=== PATIENT | female | born 1960 | race Caucasian/White ===

== ENCOUNTER 2020-04-30 08:35 | Day surgery (SDC) | payer OTHER ==
[~2020-04-30] VITALS: Ht 170.2 cm; Wt 91.1 kg
[~2020-04-30 08:35] MED LIST: ACET325; ACET325 PO; ALBIPROI INH; ALBU90OI INH; ALBU90OI61 INH; ANTIBIOTIC; CALCA500CH PO; CARI350 PO; CEPH500 PO; CHOL10002 PO; CIPR500 PO; CIPR750 PO; CITA20 PO; CRUTCH2 USE; CRUTCH4 USE; CYCL10; CYCL10 PO; Calcium + Vita1 EACH PO; Cipro500 MG PO; Cleocin HCl300 MG PO; Colace100 MG PO; DOCU100 PO; DOXY100 PO; ERGO400 PO; HYDACE10B PO; HYDACE5 PO; HYDACE5325; HYDMOR2 PO; HYDR-86 PO; HYDR1TAB94 PO; IBUP600; IBUP600 PO; IBUP800 PO; Imitrex100 MG PO; LOPE2C; LORA10 PO; NORT50; NUVA RING; Norco 10-325 T1 EACH PO; Norco 5-325 Ta1 EACH PO; OMEP20ER PO; ONDA4 PO; ONDA4ODT MM; OXYACE5T PO; OXYACE7.5T PO; OXYC5 PO; PRED10 PO; PROC10 PO; Percocet 5-3251 EACH PO; Prinivil10 MG PO; STOOL SOFTNER PO; SULFAMETHOXAZOLE5 ML PO; SUMA25 PO; TRAACE; TRAM50 PO; VICODIN 5-3001 EACH; Valium5 MG PO; Zofran Odt4 MG SL; Zofran Odt8 MG SL; Zofran4 MG PO; Zofran8 MG PO
--- NOTE | 2020-04-30 09:37 | NUR ---
04/30/20 0937 Lacey Weiner 1 TRY RIGHT HAND VALVE CML
== END 2020-04-30 10:56 | disposition home or self-care (01) ==
LOC: ORSCSDS 08:35
PROVIDERS: Surgery
PROC: 0DJD8ZZ Inspection of Lower Intestinal Tract, Via Natural or Artificial Opening Endoscopic (ICD-10-PCS; principal; 2020-04-30 09:45)
DX: Z12.11 Encounter for screening for malignant neoplasm of colon (principal); Z86.010 Personal history of colon polyps; B19.20 Unspecified viral hepatitis C without hepatic coma; J44.9 Chronic obstructive pulmonary disease, unspecified; E78.5 Hyperlipidemia, unspecified; E66.9 Obesity, unspecified; Z68.32 Body mass index [BMI] 32.0-32.9, adult; F17.210 Nicotine dependence, cigarettes, uncomplicated; F41.8 Other specified anxiety disorders; Z79.899 Other long term (current) drug therapy
CPT/HCPCS: J2250; J2405; J2704; J7120

== ENCOUNTER → 2023-05-06 | Outpatient (CLI) | payer OTHER ==
[2023-05-07 14:23] LABS: Stool Occult Bld Immuno 1 Positive (NEGATIVE)
== END | disposition home or self-care (01) ==
LOC: LAB 09:43 → LAB SHORT 09:43
PROVIDERS: Nurse Practitioner Family
DX: Z12.11 Encounter for screening for malignant neoplasm of colon (principal)
CPT/HCPCS: G0328

== ENCOUNTER 2023-12-30 22:00 | Emergency (ER) | payer OTHER ==
[~2023-12-30] VITALS: Ht 170.2 cm; Wt 88.5 kg
[~2023-12-30 22:00] MED LIST changes: +ANORO ELLIPTA1 EACH INH; +CALCIUM CARBON500 M1 PO; +Cyclobenzaprine5 MG PO; +Cymbalta20 MG PO; +FLONASE ALLERG9.9 M2; +FOLI1 PO; +IBUP400 PO; +LOSA25 PO; +NICO2; +VITAMIN B-1100 M1 PO; +[UNRECOGNIZED DRUG - OTHER] PO
[2023-12-30] MEDS ORDERED: Propofol 10mg/ml 20 ml Vial (Procedural) IV ONE (22:45)
[2023-12-30] MEDS ORDERED: NS 1,000 ML IV SCH (23:05)
[2023-12-30] MEDS ORDERED: FentaNYL Citrate 50 MCG/ML 2 ML Injection IV ONE (23:50)
[2023-12-30] MEDS ORDERED: Ondansetron HCl 2 MG / ML 2ML Vial IV ONE (23:50)
[2023-12-31] MEDS ORDERED: Acetaminophen 325 MG TABLET PO ONE (00:20)
[2023-12-31] MEDS ORDERED: Ketorolac Tromethamine 30mg Vial IV ONE (00:20)
[2023-12-31] MEDS ORDERED: HYDMOR2 PO (00:56)
[2023-12-31 01:43] VITALS: BP 130/94
== END 2023-12-31 01:45 | disposition home or self-care (01) ==
LOC: ER 22:00
DX: S52.501A Unspecified fracture of the lower end of right radius, initial encounter for closed fracture (principal); S52.601A Unspecified fracture of lower end of right ulna, initial encounter for closed fracture; W01.0XXA Fall on same level from slipping, tripping and stumbling without subsequent striking against object, initial encounter; F17.200 Nicotine dependence, unspecified, uncomplicated; Z88.2 Allergy status to sulfonamides; Z88.0 Allergy status to penicillin; Z88.1 Allergy status to other antibiotic agents; Z88.5 Allergy status to narcotic agent; Z88.8 Allergy status to other drugs, medicaments and biological substances; Z91.048 Other nonmedicinal substance allergy status; Z79.51 Long term (current) use of inhaled steroids; Z79.1 Long term (current) use of non-steroidal anti-inflammatories (NSAID); Z79.899 Other long term (current) drug therapy
CPT/HCPCS: 25605; 73110; 73200; 76000; 76377; 96374-59; 96375-59; 99152; 99285-25; A9270; J1885; J2405; J2704; J3010; J7030

== ENCOUNTER 2024-01-10 10:31 | Day surgery (SDC) | payer OTHER ==
[~2024-01-10] VITALS: Ht 170.2 cm; Wt 87.4 kg
[~2024-01-10 10:31] MED LIST changes: +Lactated Ringer's 1,000 ML IV ONE
[2024-01-10] MEDS ORDERED: CeFAZolin Sodium 2,000 MG VIAL ONE (10:47)
[2024-01-10] MEDS ORDERED: NS 50 ML IV ONE (10:47)
[2024-01-10] MEDS ORDERED: OXYC10TA19 PO (11:06)
[2024-01-10] MEDS ORDERED: Lactated Ringer's 1,000 ML IV ONE (11:13)
--- NOTE | 2024-01-10 11:18 | NUR ---
01/10/24 1118 Casie Nieves PT COMFORTABLE IN BED. OP ARM ON PILLOW FOR SUPPORT AND COMFORT. PT ONLY QUESTION RE: POST OF PAIN MEDICATION
[2024-01-10] MEDS ORDERED: Vancomycin HCL 1,000 MG in NS 250 ML IV SCH (11:20)
[2024-01-10] MEDS ORDERED: propofoL 20 ML IV ONE (12:17)
[2024-01-10] MEDS ORDERED: HYDROmorphone HCl/Pf 1MG SYR ONE ×2 (12:17→14:33)
[2024-01-10] MEDS ORDERED: Dexamethasone Sod Phos 10 MG/ML 1ML VIAL ONE (12:24)
[2024-01-10] MEDS ORDERED: Ropivacaine 0.5% HCl/Pf 5 MG/ML 20ML VIAL ONE (12:24)
[2024-01-10] MEDS ORDERED: Ketamine HCl 100 MG / ML 5ML Vial ONE (12:30)
[2024-01-10] MEDS ORDERED: Ondansetron HCl 2 MG / ML 2ML Vial ONE ×2 (12:30→14:33)
[2024-01-10] MEDS ORDERED: Midazolam HCl 1MG / ML 2ML Vial ONE (12:46)
--- NOTE | 2024-01-10 13:20 | NUR ---
01/10/24 1320 Lupis Vila 2 SCABS ON RIGHT ELBOW FROM ORIGINAL FALL. NEITHER SHOW SIGNS OF INFECTION. 0.1ML OF EPI 1MG/ML ADDED TO 20ML ROPIVICAINE 0.5% TO CREATE A LOCAL SOLUTION OF ROPIVICAINE 0.5% WITH EPI 1:200,000.
[2024-01-10] MEDS ORDERED: EPINEPhrine HCl 1 MG/ML 1ML Amp XX ONE (13:27)
[2024-01-10] MEDS ORDERED: FentaNYL Citrate 50 MCG/ML 2 ML Injection ONE (14:45)
[2024-01-10] MEDS ORDERED: HYDROmorphone HCl 2 MG Tab ONE (15:12)
[2024-01-10 15:51] VITALS: BP 133/82
== END 2024-01-10 16:45 | disposition home or self-care (01) ==
LOC: ORSCSDS 10:31
PROVIDERS: Orthopaedic Surgery
PROC: 0PSH04Z Reposition Right Radius with Internal Fixation Device, Open Approach (ICD-10-PCS; principal; 2024-01-10 12:00)
DX: S52.571A Other intraarticular fracture of lower end of right radius, initial encounter for closed fracture (principal); I10 Essential (primary) hypertension; J44.9 Chronic obstructive pulmonary disease, unspecified; K21.9 Gastro-esophageal reflux disease without esophagitis; K74.60 Unspecified cirrhosis of liver; Z79.899 Other long term (current) drug therapy; W18.30XA Fall on same level, unspecified, initial encounter; F17.210 Nicotine dependence, cigarettes, uncomplicated
CPT/HCPCS: A9270; C1713; J0171; J0690; J1100; J1170; J2250; J2405; J2704; J2795; J3010; J3370; J7050; J7120

== ENCOUNTER 2024-01-25 07:15 | Day surgery (SDC) | payer OTHER ==
[~2024-01-25] VITALS: Ht 170.2 cm; Wt 86.0 kg
[~2024-01-25 07:15] MED LIST changes: +Balanced Salt Epinephrine Irrigation Solution 500 mL IR SCH; -Lactated Ringer's 1,000 ML IV ONE; +Lidocaine HCl/Pf 1% 5 ML VIAL XX SCH; +Moxifloxacin HCL 0.5 MG/0.1 ML 0.4MLSYR LEFTEYE SCH; +NS 500 ML IV ONE; +OXYC10TA19 PO; +PHENYLEPHRINE\\TROPICAMIDE\\TETRACAINE OPHTHALMIC DILATING SOLN LEFTEYE PRN; +Povidone-Iodine 450 DROP/30 ML Solution LEFTEYE SCH
[2024-01-25] MEDS ORDERED: FentaNYL Citrate 50 MCG/ML 2 ML Injection ONE (07:57)
[2024-01-25] MEDS ORDERED: Midazolam HCl 1MG / ML 2ML Vial ONE (07:57)
[2024-01-25] MEDS ORDERED: NS 500 ML IV ONE (08:08)
[2024-01-25] MEDS ORDERED: DOXY100 PO (08:12)
--- NOTE | 2024-01-25 08:23 | NUR ---
01/25/24 0823 Shikha Del Valle NOTIFIED OF PATIENT REPORT OF CURRENTLY TAKING DOXYCYCLINE FOR "INFECTED INGROWN HAIRS ON HEAD" AND REMOVAL OF CYST ON LEFT SIDE OF CHIN YESTERDAY
[2024-01-25] MEDS ORDERED: Tetracaine HCl 0.5% Opth Soln 15 ml LEFTEYE ONE (08:58)
[2024-01-25 09:23] VITALS: BP 157/76
== END 2024-01-25 09:56 | disposition home or self-care (01) ==
LOC: ORSCSDS 07:15
PROVIDERS: Student in an Organized Health Care Education/Training Program
PROC: 08RK3JZ Replacement of Left Lens with Synthetic Substitute, Percutaneous Approach (ICD-10-PCS; principal; 2024-01-25 09:00)
DX: H25.812 Combined forms of age-related cataract, left eye (principal); Z96.1 Presence of intraocular lens; H35.30 Unspecified macular degeneration; J45.909 Unspecified asthma, uncomplicated; I10 Essential (primary) hypertension; K21.9 Gastro-esophageal reflux disease without esophagitis; B19.20 Unspecified viral hepatitis C without hepatic coma; Z79.899 Other long term (current) drug therapy; F17.210 Nicotine dependence, cigarettes, uncomplicated
CPT/HCPCS: J2250; J3010; J7040; V2632

== ENCOUNTER 2024-09-18 14:44 | Inpatient (IN) | payer OTHER ==
[~2024-09-18] VITALS: Ht 170.2 cm; Wt 86.0 kg
[~2024-09-18 14:44] MED LIST changes: -Balanced Salt Epinephrine Irrigation Solution 500 mL IR SCH; -CHOL10002 PO; -Lidocaine HCl/Pf 1% 5 ML VIAL XX SCH; -Moxifloxacin HCL 0.5 MG/0.1 ML 0.4MLSYR LEFTEYE SCH; -NS 500 ML IV ONE; -PHENYLEPHRINE\\TROPICAMIDE\\TETRACAINE OPHTHALMIC DILATING SOLN LEFTEYE PRN; -Povidone-Iodine 450 DROP/30 ML Solution LEFTEYE SCH; +VITAMIN D325 MC3 PO; +Vitamin B-12100 MCG
[2024-09-18 15:03] LABS: Calcium, Ionized (POC) 0.99 mmol/L (1.10-1.46); Chloride (POC) 103 mmol/L (98-108); Creatinine (POC) 1.1 mg/dL (0.6-1.0); Glucose (ISTAT POC) 85 mg/dL (70-99); Potassium (POC) 3.9 mmol/L (3.5-5.5); Sodium (POC) 138 mmol/L (135-148); Total CO2 (POC) 20 mmol/L (21-32)
[2024-09-18] MEDS ORDERED: NS 1,000 ML IV SCH (15:05)
[2024-09-18] MEDS ORDERED: Calcium Gluconate 10% 100 MG/ML INJ IV ONE (15:05)
[2024-09-18 15:09] LABS: BASOPHILS ABSOLUTE AUTO 0.07 K/mm3 (0.00-0.23); BASOPHILS PERCENT AUTO 1 % (0-2); EOSINOPHILS ABSOLUTE AUTO 0.01 K/mm3 (0.00-0.68); EOSINOPHILS PERCENT AUTO 0 % (0-6); Hematocrit 42.9 % (33.0-51.0); Hemoglobin 14.9 g/dL (11.5-16.0); IMMATURE GRAN ABSOLUTE AUTO 0.04 K/mm3 (0.00-0.10); IMMATURE GRAN PERCENT AUTO 0 % (0-1); LYMPHOCYTES ABSOLUTE AUTO 0.77 K/mm3 (0.84-5.20); LYMPHOCYTES PERCENT AUTO 7 % (21-46); MONOCYTES ABSOLUTE AUTO 1.13 K/mm3 (0.16-1.47); MONOCYTES PERCENT AUTO 11 % (4-13); Mean Corpuscular HGB 35.4 pg (26.0-34.0); Mean Corpuscular HGB Conc 34.7 g/dL (31.5-36.5); Mean Corpuscular Volume 102 fL (80-100); Mean Platelet Volume 10.1 fL (9.1-12.4); NEUTROPHILS ABSOLUTE AUTO 8.53 K/mm3 (1.96-9.15); NEUTROPHILS PERCENT AUTO 81 % (41-73); Platelet Count 148 K/mm3 (150-400); RDW Coefficient Variation 14.1 % (11.7-14.2); RDW Standard Deviation 53.1 fL (35.1-46.3); Red Blood Cell Count 4.21 M/mm3 (3.80-5.20); White Blood Cell Count 10.55 K/mm3 (4.00-11.30)
[2024-09-18] MEDS ORDERED: CALCIUM GLUC IN NACL, ISO-OSM 50 ML IV ONE (15:15)
[2024-09-18] MEDS ORDERED: Ondansetron HCl 2 MG / ML 2ML Vial IV ONE (15:30)
[2024-09-18 15:35] LABS: Thyroid Stimulating Hormone 1.81 uIU/mL (0.360-4.800)
[2024-09-18 15:42] LABS: Albumin, Blood 3.3 g/dL (3.4-5.0); Albumin/Globulin Ratio 0.7 (0.8-1.8); Bilirubin, Total 1.3 mg/dL (0.1-1.0); Bun/Creatinine Ratio 10.7 (12.0-20.0); Calcium, Blood 8.4 mg/dL (8.5-10.1); Creatinine, Blood 1.03 mg/dL (0.40-1.00); Globulin, Blood 4.7 g/dL (2.2-4.0); Potassium, Blood 3.8 mmol/L (3.5-5.5)
[2024-09-18] MEDS ORDERED: Diltiazem HCl 5 MG / ML 5ML Vial IV ONE ×2 (15:55→17:10)
[2024-09-18] MEDS ORDERED: PHENobarbital Sodium 65MG / ML 1ML Vial IV ONE (17:05)
[2024-09-18] MEDS ORDERED: dilTIAZem HCL 100 MG in NS 100 ML IV SCH (17:10)
[2024-09-18] MEDS ORDERED: Ciprofloxacin 400MG/D5 200ML 200 ML IV ONE (17:35)
[2024-09-18] MEDS ORDERED: Thiamine HCl 100 MG in NS 50 ML IV SCH (18:00)
[2024-09-18] MEDS ORDERED: Folic Acid 1 MG in NS 50 ML IV SCH (18:00)
[2024-09-18] MEDS ORDERED: FLU VACC TS2024-25(6MOS UP)/PF 45 MCG/0.5 ML SYRINGE IM ONE (18:20)
[2024-09-18] MEDS ORDERED: LORazepam 2 MG/ML 1ML Injection IV PRN (18:20)
[2024-09-18] MEDS ORDERED: ChlordiazePOXIDE 25 MG Cap PO PRN (18:25)
[2024-09-18 18:56] LABS: International Normalized Ratio 1.15; Prothrombin Time Results 12.2 Sec (9.7-11.5)
[2024-09-18] MEDS ORDERED: Metoprolol Tartrate 25 MG Tab PO SCH (19:00)
[2024-09-18] MEDS ORDERED: Metoprolol Tartrate 1 MG/ML 5 ML VIAL IV ONE (19:00)
[2024-09-18] MEDS ORDERED: Pantoprazole Sodium 40 MG Injection IV SCH (19:00)
[2024-09-18] MEDS ORDERED: Metoprolol Tartrate 1 MG/ML 5 ML VIAL IV PRN (19:00)
[2024-09-18] MEDS ORDERED: Lactobacil 2-S.Thermo-Bifido 1 1 Cap PO SCH (21:00)
[2024-09-18 23:20] VITALS: BP 111/76
[2024-09-19 04:01] VITALS: BP 111/70
[2024-09-19 05:05] LABS: Hemoglobin 11.6 g/dL (11.5-16.0); Mean Corpuscular HGB 34.4 pg (26.0-34.0); Mean Corpuscular HGB Conc 34.1 g/dL (31.5-36.5); Mean Corpuscular Volume 101 fL (80-100); Mean Platelet Volume 10.6 fL (9.1-12.4); NRBC ABSOLUTE 0.02 K/mm3 (0.00-0.02); NRBC Auto 0.2 /100 WBC (0.0-0.2); Platelet Count 117 K/mm3 (150-400); RDW Coefficient Variation 14.1 % (11.7-14.2); RDW Standard Deviation 51.9 fL (35.1-46.3); Red Blood Cell Count 3.37 M/mm3 (3.80-5.20); White Blood Cell Count 9.76 K/mm3 (4.00-11.30)
[2024-09-19 05:59] LABS: Albumin, Blood 2.9 g/dL (3.4-5.0); Albumin/Globulin Ratio 0.8 (0.8-1.8); Bun/Creatinine Ratio 12.7 (12.0-20.0); Calcium, Blood 8.1 mg/dL (8.5-10.1); Creatinine, Blood 1.1 mg/dL (0.40-1.00); Globulin, Blood 3.8 g/dL (2.2-4.0); Potassium, Blood 3.6 mmol/L (3.5-5.5); Total Protein, Blood 6.7 g/dL (6.4-8.2)
[2024-09-19 08:16] VITALS: BP 105/67
[2024-09-19] MEDS ORDERED: Ciprofloxacin 500 MG Tab PO SCH (09:00)
[2024-09-19] MEDS ORDERED: TRELEGY ELLIPT1 EACH INH (10:02)
[2024-09-19 12:07] VITALS: BP 129/77
[2024-09-19 15:30] VITALS: BP 118/70
[2024-09-19 19:10] VITALS: BP 110/64
[2024-09-19] MEDS ORDERED: Melatonin 5 MG Tablet PO ONE (22:55)
[2024-09-19 23:49] VITALS: BP 101/73
[2024-09-20 03:12] VITALS: BP 106/59
[2024-09-20 04:34] LABS: Hematocrit 33.4 % (33.0-51.0); Hemoglobin 11.7 g/dL (11.5-16.0); Mean Corpuscular HGB 35.1 pg (26.0-34.0); Mean Corpuscular Volume 100 fL (80-100); Mean Platelet Volume 10.3 fL (9.1-12.4); Platelet Count 119 K/mm3 (150-400); RDW Standard Deviation 51.2 fL (35.1-46.3); Red Blood Cell Count 3.33 M/mm3 (3.80-5.20); White Blood Cell Count 9.07 K/mm3 (4.00-11.30)
[2024-09-20 04:49] LABS: Albumin, Blood 2.7 g/dL (3.4-5.0); Albumin/Globulin Ratio 0.7 (0.8-1.8); Bun/Creatinine Ratio 15.8 (12.0-20.0); Calcium, Blood 7.9 mg/dL (8.5-10.1); Creatinine, Blood 0.88 mg/dL (0.40-1.00); Globulin, Blood 3.8 g/dL (2.2-4.0); Potassium, Blood 3.6 mmol/L (3.5-5.5); Total Protein, Blood 6.5 g/dL (6.4-8.2)
[2024-09-20 07:35] VITALS: BP 113/65
[2024-09-20] MEDS ORDERED: Enoxaparin 40 MG/0.4 ML SYR SC SCH (11:00)
[2024-09-20] MEDS ORDERED: NS 250 ML IV PRN (11:55)
[2024-09-20 12:06] VITALS: BP 114/67
[2024-09-20] MEDS ORDERED: SUMAtriptan succinate 50 MG Tab PO PRN (15:30)
[2024-09-20] MEDS ORDERED: Cyclobenzaprine HCl 10 MG Tab PO PRN (15:35)
[2024-09-20] MEDS ORDERED: Albuterol HFA200 ACT/6.7 GM INH INH PRN (15:45)
[2024-09-20] MEDS ORDERED: Tiotropium Bromide 2.5 MCG/ACT MIST INHAL (10 ACT/4 GM) INH SCH (15:45)
[2024-09-20] MEDS ORDERED: Mometasone/Formoterol MDI 100/5 mcg 13 GM INH SCH (15:45)
[2024-09-20 16:06] VITALS: BP 115/67
[2024-09-20] MEDS ORDERED: Ibuprofen 400 MG Tab PO PRN (16:25)
[2024-09-20 20:01] VITALS: BP 101/67
[2024-09-21 03:02] VITALS: BP 105/63
[2024-09-21 08:08] VITALS: BP 125/88
[2024-09-21] MEDS ORDERED: Cyanocobalamin 500 MCG Tab PO SCH (09:00)
[2024-09-21] MEDS ORDERED: Fluticasone 0.05% Nasal Spray SCH (09:00)
[2024-09-21] MEDS ORDERED: DULoxetine HCL 60 MG Capsule DR PO SCH (09:00)
[2024-09-21] MEDS ORDERED: Losartan Potassium 50 MG Tab PO SCH (09:00)
[2024-09-21] MEDS ORDERED: Calcium Carbonate 1,250 MG TABLET PO SCH (09:00)
[2024-09-21] MEDS ORDERED: Cholecalciferol 1000 Unit Tablet (=25MCG) PO SCH (09:00)
[2024-09-21 09:31] LABS: Albumin, Blood 3.1 g/dL (3.4-5.0); Albumin/Globulin Ratio 0.7 (0.8-1.8); Bilirubin, Total 0.8 mg/dL (0.1-1.0); Bun/Creatinine Ratio 20.2 (12.0-20.0); Calcium, Blood 8.6 mg/dL (8.5-10.1); Creatinine, Blood 0.79 mg/dL (0.40-1.00); Globulin, Blood 4.4 g/dL (2.2-4.0); Potassium, Blood 3.8 mmol/L (3.5-5.5); Total Protein, Blood 7.5 g/dL (6.4-8.2)
[2024-09-21] MEDS ORDERED: CIPRO500 M1 PO (10:59)
[2024-09-21] MEDS ORDERED: VISBIOME 112.51 EACH PO (11:00)
[2024-09-21] MEDS ORDERED: Lopressor 25 mg25 MG PO (11:00)
[2024-09-21] MEDS ORDERED: ASPI81CH PO (11:01)
== END 2024-09-21 12:35 | disposition home or self-care (01) | DRG 309 ==
LOC: ER 14:44 → ERHOLD 18:15 → PCU 18:15 → MEDS 09-20 12:00 → ENPENDDIS 09-21 11:08 → MEDS 09-21 12:35
PROVIDERS: Emergency Medicine; Internal Medicine; ADMIT Internal Medicine
DX: I48.0 Paroxysmal atrial fibrillation (principal); E87.1 Hypo-osmolality and hyponatremia; K52.89 Other specified noninfective gastroenteritis and colitis; R74.01 Elevation of levels of liver transaminase levels; I95.9 Hypotension, unspecified; E83.51 Hypocalcemia; E86.0 Dehydration; F41.8 Other specified anxiety disorders; F17.210 Nicotine dependence, cigarettes, uncomplicated; F10.20 Alcohol dependence, uncomplicated; Z90.49 Acquired absence of other specified parts of digestive tract; Z87.19 Personal history of other diseases of the digestive system; Z98.890 Other specified postprocedural states; Z88.1 Allergy status to other antibiotic agents; Z88.0 Allergy status to penicillin; Z88.2 Allergy status to sulfonamides; Z88.8 Allergy status to other drugs, medicaments and biological substances; Z91.048 Other nonmedicinal substance allergy status; Z79.899 Other long term (current) drug therapy; Z88.5 Allergy status to narcotic agent
CPT/HCPCS: 36415; 51798; 74177; 80047; 80053; 83690; 84443; 85014; 85025; 85027; 85610; 93005; 93010; 93306; 94760; 96361; 96365-59; 96375; 96376; 99285-25; A9270; J0612; J0744; J1650; J2405; J2470; J2560; J3411; J7030; J7050; Q9967

== ENCOUNTER 2024-10-02 21:26 | Observation (INO) | payer OTHER ==
[~2024-10-02] VITALS: Ht 170.2 cm; Wt 89.5 kg
[~2024-10-02 21:26] MED LIST changes: +ASPI81CH PO; +CIPRO500 M1 PO; +Lopressor 25 mg25 MG PO; +TRELEGY ELLIPT1 EACH INH; +VISBIOME 112.51 EACH PO
[2024-10-02 21:58] LABS: BASOPHILS PERCENT AUTO 1 % (0-2); EOSINOPHILS ABSOLUTE AUTO 0.07 K/mm3 (0.00-0.68); EOSINOPHILS PERCENT AUTO 1 % (0-6); Hematocrit 34.5 % (33.0-51.0); Hemoglobin 12.4 g/dL (11.5-16.0); IMMATURE GRAN ABSOLUTE AUTO 0.03 K/mm3 (0.00-0.10); IMMATURE GRAN PERCENT AUTO 0 % (0-1); LYMPHOCYTES ABSOLUTE AUTO 2.78 K/mm3 (0.84-5.20); LYMPHOCYTES PERCENT AUTO 28 % (21-46); MONOCYTES ABSOLUTE AUTO 0.51 K/mm3 (0.16-1.47); MONOCYTES PERCENT AUTO 5 % (4-13); Mean Corpuscular HGB 35.2 pg (26.0-34.0); Mean Corpuscular HGB Conc 35.9 g/dL (31.5-36.5); Mean Corpuscular Volume 98 fL (80-100); NEUTROPHILS ABSOLUTE AUTO 6.45 K/mm3 (1.96-9.15); NEUTROPHILS PERCENT AUTO 65 % (41-73); Platelet Count 150 K/mm3 (150-400); RDW Coefficient Variation 14.4 % (11.7-14.2); Red Blood Cell Count 3.52 M/mm3 (3.80-5.20); White Blood Cell Count 9.94 K/mm3 (4.00-11.30)
[2024-10-02] MEDS ORDERED: NS 1,000 ML IV ONE (22:01)
[2024-10-02] MEDS ORDERED: NS 1,000 ML IV SCH (22:05)
[2024-10-02 22:18] LABS: Albumin, Blood 3.3 g/dL (3.4-5.0); Albumin/Globulin Ratio 0.8 (0.8-1.8); Bilirubin, Total 0.5 mg/dL (0.1-1.0); Bun/Creatinine Ratio 8.8 (12.0-20.0); Calcium, Blood 8.1 mg/dL (8.5-10.1); Creatinine, Blood 0.68 mg/dL (0.40-1.00); Globulin, Blood 4.3 g/dL (2.2-4.0); Potassium, Blood 3.6 mmol/L (3.5-5.5); Total Protein, Blood 7.6 g/dL (6.4-8.2)
[2024-10-02] MEDS ORDERED: Glucagon 1 MG/KIT VIAL IV ONE (22:25)
[2024-10-02] MEDS ORDERED: Ondansetron HCl 2 MG / ML 2ML Vial IV ONE (22:25)
[2024-10-02 22:47] LABS: International Normalized Ratio 1.07; Prothrombin Time Results 11.4 Sec (9.7-11.5)
[2024-10-03] VITALS (12 sets, daily range): BP systolic 125–161; BP diastolic 75–97
[2024-10-03 00:15] LABS: Hematocrit 31.7 % (33.0-51.0)
[2024-10-03] MEDS ORDERED: ChlordiazePOXIDE 25 MG Cap PO PRN (00:15)
[2024-10-03] MEDS ORDERED: NS 1,000 ML IV SCH (00:20)
[2024-10-03] MEDS ORDERED: Ondansetron HCl 2 MG / ML 2ML Vial IV PRN (00:20)
[2024-10-03] MEDS ORDERED: FLU VACC TS2024-25(6MOS UP)/PF 45 MCG/0.5 ML SYRINGE IM ONE (00:20)
[2024-10-03] MEDS ORDERED: LORazepam 2 MG/ML 1ML Injection IV PRN (00:20)
[2024-10-03] MEDS ORDERED: Pantoprazole Sodium 40 MG in NS 50 ML IV SCH (00:30)
[2024-10-03 06:19] LABS: BASOPHILS ABSOLUTE AUTO 0.11 K/mm3 (0.00-0.23); BASOPHILS PERCENT AUTO 1 % (0-2); EOSINOPHILS ABSOLUTE AUTO 0.12 K/mm3 (0.00-0.68); EOSINOPHILS PERCENT AUTO 2 % (0-6); Hematocrit 33.6 % (33.0-51.0); Hemoglobin 11.8 g/dL (11.5-16.0); IMMATURE GRAN ABSOLUTE AUTO 0.02 K/mm3 (0.00-0.10); IMMATURE GRAN PERCENT AUTO 0 % (0-1); LYMPHOCYTES ABSOLUTE AUTO 2.38 K/mm3 (0.84-5.20); LYMPHOCYTES PERCENT AUTO 29 % (21-46); MONOCYTES ABSOLUTE AUTO 0.77 K/mm3 (0.16-1.47); MONOCYTES PERCENT AUTO 10 % (4-13); Mean Corpuscular HGB 35.2 pg (26.0-34.0); Mean Corpuscular HGB Conc 35.1 g/dL (31.5-36.5); Mean Corpuscular Volume 100 fL (80-100); Mean Platelet Volume 10.1 fL (9.1-12.4); NEUTROPHILS ABSOLUTE AUTO 4.72 K/mm3 (1.96-9.15); NEUTROPHILS PERCENT AUTO 58 % (41-73); Platelet Count 122 K/mm3 (150-400); RDW Coefficient Variation 14.5 % (11.7-14.2); RDW Standard Deviation 53.1 fL (35.1-46.3); Red Blood Cell Count 3.35 M/mm3 (3.80-5.20); White Blood Cell Count 8.12 K/mm3 (4.00-11.30)
[2024-10-03 06:42] LABS: Albumin/Globulin Ratio 0.8 (0.8-1.8); Bilirubin, Total 0.6 mg/dL (0.1-1.0); Bun/Creatinine Ratio 11.4 (12.0-20.0); Calcium, Blood 7.8 mg/dL (8.5-10.1); Creatinine, Blood 0.61 mg/dL (0.40-1.00); Globulin, Blood 3.9 g/dL (2.2-4.0); Potassium, Blood 3.6 mmol/L (3.5-5.5); Total Protein, Blood 6.9 g/dL (6.4-8.2)
[2024-10-03] MEDS ORDERED: Ipratropium Bromide INH 0.02% 0.5 mg/2.5ML Vial INH SCH (07:15)
[2024-10-03] MEDS ORDERED: Albuterol HFA200 ACT/6.7 GM INH INH PRN (07:15)
[2024-10-03] MEDS ORDERED: Mometasone/Formoterol MDI 100/5 mcg 13 GM INH SCH (07:15)
--- NOTE | 2024-10-03 07:37 | NUR ---
SHIFT SUMMARY: PT ARRIVES TO PCU 10 FROM ER VIA GURNEY AROUND 0400. PT IS A SBA TO TRANSFER TO HOSPITAL BED. PT IS LIGHT HEADED AND DIZZY WHILE TRANSFERRING. PT ORIENTED TO ROOM AND CALL LIGHT. PT IS A&OX4, ANXIOUS BUT COOPERATIVE WITH CARES. CIWA WAS 5, NO INTERVENTIONS AT THIS TIME. PT DOES SMELL OF ALCOHOL, STATES HER LAST DRINK WAS 10/02/24 AT LUNCH TIME. STATES SHE DRINKS 2-4 BEERS DAILY. VSS ON RA. SR 70'S-80'S. C/O SHARPE, DENIES OTHER PAIN. TOLERATING A CLEAR LIQUID DIET. VOIDING ADEQUATE AMOUNTS OF CONCENTRATED YELLOW URINE IN BSC. NO BM THIS SHIFT. PT IS A DAILY TOBACCO SMOKER, DENIED THE NEED FOR NICOTINE REPLACEMENT AT THIS TIME. SMOKING CESSATION DISCUSSED, PT IS NOT INTERESTED AT THIS TIME. BED IN LOWEST POSITION, CALL LIGHT WITHIN REACH. BED ALARM SET FOR PT'S SAFETY.
[2024-10-03] MEDS ORDERED: DULoxetine HCL 60 MG Capsule DR PO SCH (09:00)
[2024-10-03] MEDS ORDERED: Metoprolol Tartrate 25 MG Tab PO SCH (09:00)
[2024-10-03] MEDS ORDERED: Losartan Potassium 50 MG Tab PO SCH (09:00)
[2024-10-03] MEDS ORDERED: SUMAtriptan succinate 50 MG Tab PO PRN (10:00)
[2024-10-03 12:41] LABS: Hematocrit 33.1 % (33.0-51.0); Hemoglobin 11.6 g/dL (11.5-16.0)
[2024-10-03] MEDS ORDERED: SuccINYLCHOLINE Chloride 100 MG/5 ML 5MLSYR ONE (13:44)
[2024-10-03] MEDS ORDERED: Phenylephrine HCl 100 MCG/ML-NS 10MLSYR (1MG/10ML) ONE (13:44)
[2024-10-03] MEDS ORDERED: propofoL 100 ML IV ONE (13:54)
[2024-10-03] MEDS ORDERED: Lactated Ringer's 1,000 ML IV SCH (13:55)
--- NOTE | 2024-10-03 14:02 | NUR ---
PATIENT TO DAY SURGERY AT THIS TIME FOR UPPER SCOPE. DISTRICT PLANT SUPERINTENDENT NOTIFIED.
--- NOTE | 2024-10-03 14:19 | NUR ---
PT BROUGHT TO [facility] FOR EGD W/ VITO W/ DR. ODONNELL. PT HAS BEEN NPO SINCE 1100 WHEN SHE HAD WATER. Pre-Op teaching done. Pt verbalizes understanding. History, Chart, Medications and Allergies reviewed before start of procedure.
--- NOTE | 2024-10-03 14:20 | NUR ---
Spiritual care visit conducted. Patient is lying in bed and alert. She tells me about her medical problems and the plan moving forward. She tells me about many of the unfortunate events that have happened in her life including the of her son in a logging accident and the recent of her mother. She tells me about the axiousness she feels about an upcoming endoscopy. I normalized her fears and feelings and provided therapeutic listening, anxiety containment, grief support and prayer. Patient responded well and showed signs of reduced stress.
--- NOTE | 2024-10-03 14:29 | NUR ---
PT FEELS VERY AFRAID, WEAK AND SHAKY WHEN SHE STANDS. THIS HAS BEEN GOING ON FOR A FEW WEEKS AND PT STATES SHE NOW USES A WALKER AT HOME
--- NOTE | 2024-10-03 14:44 | NUR ---
10/03/24 1444 Mundo Huber MONITOR INTACT WITH CONTINUOUS PULSE OXIMETRY, CONTINUOUS END TITAL CO2, 3-LEAD EKG AND INTERMITTENT BLOOD PRESSURE. ANESTHESIA PER EDUARDO CASH REGISTER BALANCER
[2024-10-03] MEDS ORDERED: Ondansetron HCl 2 MG / ML 2ML Vial IV SCH ×2 (17:30→18:05)
[2024-10-03] MEDS ORDERED: Peg/Electrolytes 4,000 ML BTL PO ONE (18:00)
[2024-10-03 18:10] LABS: Hematocrit 33.1 % (33.0-51.0); Hemoglobin 11.4 g/dL (11.5-16.0)
--- NOTE | 2024-10-03 18:52 | NUR ---
SHIFT SUMMARY PT A/OX4 AND LOW CIWAS THROUGHOUT SHIFT. UPPER ENDOSCOPY COMPLETED TODAY. PLAN FOR COLONSCOPY TOMORROW. GOLYTELY PREP STARTED. PT VSS. NO EVIDENCE OF BLOODY STOOLS TODAY. REMAINS IN SINUS RHYTHM. DENIES PAIN AT THIS TIME. BED LOW AND LOCKED.
[2024-10-04 00:33] LABS: Hematocrit 33.1 % (33.0-51.0); Hemoglobin 11.6 g/dL (11.5-16.0)
[2024-10-04 01:22] VITALS: BP 141/77
[2024-10-04 04:23] VITALS: BP 144/74
[2024-10-04 04:50] LABS: Hematocrit 31.9 % (33.0-51.0); Hemoglobin 11.1 g/dL (11.5-16.0); Mean Corpuscular HGB Conc 34.8 g/dL (31.5-36.5); Mean Corpuscular Volume 101 fL (80-100); Mean Platelet Volume 10.5 fL (9.1-12.4); Platelet Count 106 K/mm3 (150-400); RDW Coefficient Variation 14.5 % (11.7-14.2); RDW Standard Deviation 52.8 fL (35.1-46.3); Red Blood Cell Count 3.17 M/mm3 (3.80-5.20); White Blood Cell Count 7.33 K/mm3 (4.00-11.30)
[2024-10-04 05:12] LABS: Bun/Creatinine Ratio 9.3 (12.0-20.0); Creatinine, Blood 0.65 mg/dL (0.40-1.00); Potassium, Blood 3.5 mmol/L (3.5-5.5)
[2024-10-04] MEDS ORDERED: Ondansetron HCl 2 MG / ML 2ML Vial IV SCH (06:30)
--- NOTE | 2024-10-04 06:59 | NUR ---
SHIFT SUMMARY: PT IS A&OX4, ANXIOUS BUT COOPERATIVE WITH CARES. VSS ON RA. SR 70'S-80'S. C/O SHARPE, DENIES OTHER PAIN. TOLERATING A CLEAR LIQUID DIET, WATER AND ICE CHIPS ONLY AFTER 2300. FINISHED HALF OF BOWEL PREP, WILL RESUME BOWEL PREP AT 0600. WATERY, CLEAR WITH A FEW FLAKES, YELLOW BM'S. VOIDING ADEQUATE AMOUNTS OF CONCENTRATED YELLOW URINE IN BSC. PULL-UP IN PLACE AND CHANGED NEEDED. SBA WITH FWW TO BSC. BED IN LOWEST POSITION, CALL LIGHT WITHIN REACH. CALLS APPROPRIATELY AND IS ABLE TO ADVOCATE NEEDS EFFECTIVELY.
[2024-10-04] MEDS ORDERED: Peg/Electrolytes 4,000 ML BTL PO ONE (07:00)
[2024-10-04] MEDS ORDERED: Ipratropium Bromide INH 0.02% 0.5 mg/2.5ML Vial INH SCH (07:15)
[2024-10-04 08:46] VITALS: BP 147/93
[2024-10-04 12:47] VITALS: BP 148/87
[2024-10-04] MEDS ORDERED: Promethazine HCl 25 MG Tab PO PRN (14:05)
[2024-10-04] MEDS ORDERED: propofoL 40 ML IV ONE ×2 (14:53→15:53)
[2024-10-04] MEDS ORDERED: Fluconazole 100 MG Tab PO SCH (15:00)
[2024-10-04] MEDS ORDERED: Lactated Ringer's 1,000 ML IV SCH (15:00)
[2024-10-04 15:19] VITALS: BP 153/97
[2024-10-04] MEDS ORDERED: propofoL 20 ML IV ONE (15:46)
--- NOTE | 2024-10-04 15:53 | NUR ---
report given to itz rn at 1450. Itz to take over care.
[2024-10-04] MEDS ORDERED: Lidocaine 2% Jelly Uro-Jet ONE (16:15)
[2024-10-04 16:55] VITALS: BP 160/91
[2024-10-04] MEDS ORDERED: Aspirin 81 MG Chew PO SCH (17:00)
[2024-10-04] MEDS ORDERED: DIFLUCAN100 MG PO (17:29)
--- NOTE | 2024-10-04 18:25 | NUR ---
PT DISCHARGED TO HOME, POST COLONOSCOPY, FOLLOW UP WITH SURGERY WITH RESULTS OF BIOPSY. VITALS HAS BEEN STABLE. ALL DISCHARGE INSTRUCTIONS AND NEW MEDICATIONS DISCLOSED WITH THE PT. ALL BELONGINGS SENT WITH THE PT. ACCOMPANIED VIA WHEELCHAIR FOR TRANSPORT
[2024-10-05] MEDS ORDERED: Omeprazole 20 MG CapCR PO SCH (06:00)
--- NOTE | 2024-10-06 10:19 | NUR ---
10/06/24 1019 Mundo Huber MONITOR INTACT WITH CONTINUOUS PULSE OXIMETRY, CONTINUOUS END TITAL CO2, 3-LEAD EKG AND INTERMITTENT BLOOD PRESSURE. ANESTHESIA PER Keyanna BLAND PROGRAM RESEARCH SPECIALIST
== END 2024-10-04 17:47 | disposition home or self-care (01) ==
LOC: ER 21:26 → PCU 21:27
PROVIDERS: Emergency Medicine; Internal Medicine; Student in an Organized Health Care Education/Training Program; ADMIT Internal Medicine
DX: K76.6 Portal hypertension (principal); K31.89 Other diseases of stomach and duodenum; B37.81 Candidal esophagitis; K44.9 Diaphragmatic hernia without obstruction or gangrene; K22.2 Esophageal obstruction; D12.2 Benign neoplasm of ascending colon; D12.3 Benign neoplasm of transverse colon; K64.4 Residual hemorrhoidal skin tags; K57.30 Diverticulosis of large intestine without perforation or abscess without bleeding; E87.1 Hypo-osmolality and hyponatremia; I48.0 Paroxysmal atrial fibrillation; F10.20 Alcohol dependence, uncomplicated; F17.210 Nicotine dependence, cigarettes, uncomplicated; I10 Essential (primary) hypertension; G43.909 Migraine, unspecified, not intractable, without status migrainosus; K21.9 Gastro-esophageal reflux disease without esophagitis; E78.5 Hyperlipidemia, unspecified; J44.89 Other specified chronic obstructive pulmonary disease; Z88.0 Allergy status to penicillin; Z88.1 Allergy status to other antibiotic agents; Z88.2 Allergy status to sulfonamides; Z88.5 Allergy status to narcotic agent; Z79.82 Long term (current) use of aspirin; Z79.899 Other long term (current) drug therapy
CPT/HCPCS: 36415; 80048; 80053; 83880; 85014; 85018; 85025; 85027; 85610; 85730; 86850; 86900; 86901; 88305; 93005; 93010; 94640; 94664; 94760; 94762; 96365; 96375; 96376; 99285-25; A9270; G0378; J0330; J1610; J2371; J2405; J2470; J2704; J7030; J7120